=== PATIENT | female | born 1955 | race Caucasian/White ===

== ENCOUNTER → 2022-02-27 06:09 | Outpatient (CLI) | payer MEDICAID, SELFPAY ==
[2022-02-27 18:25] LABS: Alanine Aminotransferase 25 U/L (12-78); Albumin Level 3.9 g/dl (3.5-5.0); Albumin/Globulin Ratio 1.4 (1.1-1.8); Alkaline Phosphatase 126 U/L (38-126); Anion Gap 10.3 mEq/L (5-15); Aspartate Amino Transferase 34 U/L (14-36); Blood Urea Nitrogen 18 mg/dl (7-17); Calcium 9.2 mg/dl (8.4-10.2); Carbon Dioxide 25 mmol/L (22.0-30.0); Chloride 109 mmol/L (98-107); Estimated Glomerular Filt Rate 72 ml/min (>60); GFR (African American) 87 ML/MIN (>60); Globulin 2.7 g/dL (1.3-3.2); Glucose 95 mg/dl (74-100); Potassium 4.3 mmoL/L (3.5-5.1); Sodium 140 mmol/L (136-145); Total Protein,Serum 6.6 g/dl (6.3-8.2)
[2022-02-27 18:45] LABS: Bilirubin,Total < 0.1 mg/dl (0.2-1.3)
[2022-02-27 18:54] LABS: Thyroid Stimulating Hormone 0.83 uIU/mL (0.465-4.68)
[2022-02-27 19:47] LABS: Hemoglobin A1C 6.8 % (4.0-6.0)
== END ==
PROVIDERS: PCP Family Medicine; Visit Provider Family Medicine
DX: E11.9 Type 2 diabetes mellitus without complications (principal); Z79.84 Long term (current) use of oral hypoglycemic drugs
CPT/HCPCS: 80053; 83036; 84443

== ENCOUNTER → 2022-04-03 09:39 | Outpatient (CLI) | payer MEDICAID, SELFPAY ==
[2022-04-03 12:00] LABS: Ferritin 7.89 ng/ml (11.1-264)
[2022-04-03 12:31] LABS: Vitamin B12 264 pg/mL (239-931)
[2022-04-03 12:36] LABS: Folate 8.63 ng/mL
== END ==
PROVIDERS: PCP Family Medicine; Visit Provider Specialist
DX: E83.10 Disorder of iron metabolism, unspecified (principal)
CPT/HCPCS: 36415; 82607; 82728; 82746

== ENCOUNTER → 2022-08-10 08:37 | Outpatient (CLI) | payer MEDICAID, SELFPAY ==
[2022-08-10 11:28] LABS: Ferritin 25.7 ng/ml (11.1-264)
[2022-08-10 11:43] LABS: Vitamin B12 427 pg/mL (239-931)
== END ==
PROVIDERS: PCP Family Medicine; Visit Provider Specialist
DX: E83.10 Disorder of iron metabolism, unspecified (principal); E53.8 Deficiency of other specified B group vitamins
CPT/HCPCS: 36415; 82607; 82728